=== PATIENT | female | born 1950 | race Caucasian/White ===

== ENCOUNTER 2021-08-13 14:58 | Emergency (ER) | payer MEDICARE, OTHER, SELFPAY ==
[2021-08-13 15:33] VITALS: BP 114/52; PULSE 78; RESP 16; TEMP 36.2; O2SAT 97
--- NOTE | 2021-08-13 15:44 | DI.CT_ITS ---
Exam(s) CT HEAD FACIAL WO EXAM: CT HEAD FACIAL WO CLINICAL HISTORY: trauma headache. TECHNIQUE: Imaging Protocol: Axial computed tomography images with coronal and sagittal reformatted images were created and reviewed COMPARISON: No exams were available for comparison FINDINGS: CT Head: Ventricles and Extra axial spaces: Normal in size and morphology for the patient's age. Hemorrhage: None. Cerebral parenchyma: Normal. Midline shift: None. Brainstem/Cerebellum: Normal. Calvarium: Normal. Visualized Paranasal sinuses/Mastoids: Clear. Soft Tissues: Unremarkable. CT Face: Facial Bones: No definite fracture is noted in facial bones. Sinuses and Mastoids: Unremarkable. Globes, extraocular muscles, optic nerves and retrobulbar fat: Normal. Upper aerodigestive tract: Normal. Mandible and bilateral temporomandibular joints: Normal. Soft tissues: Normal. IMPRESSION: 1. No acute intracranial process. 2. No acute facial fracture. RADIATION DOSE DELIVERED: 1,081.44mGy.cm Total DLP DATA REPOSITORY: All CT scans at this facility are submitted to the National Radiology Data Registry (NRDR) Dose Index Registry (DIR) with the [employer] ([employer]). RADIATION OPTIMIZATION: All CT scans at this facility use at least one of these dose optimization te chniques: automated exposure control; mA and/or kV adjustment per patient size (includes targeted exa ms where dose is matched to clinical indication); or iterative reconstruction.
[2021-08-13] MEDS: Acetaminophen 325 MG TAB 650 MG PO (15:53)
--- NOTE | 2021-08-13 17:08 | DI.VRAD_ITS ---
PROCEDURE INFORMATION: Exam: CT Head Without Contrast Exam date and time: 08/13/2021 4:19 PM Age: 71 years old Clinical indication: Other: Trauma, headache TECHNIQUE: Imaging protocol: Computed tomography of the head without contrast. COMPARISON: No relevant prior studies available. FINDINGS: Brain: No acute intracranial hemorrhage.. There is mild diffuse heterogeneity of the white matter attenuation, consistent with chronic white matter ischemic changes. Mild cerebral atrophy Cerebral ventricles: No ventriculomegaly. Paranasal sinuses: Visualized sinuses are unremarkable. No fluid levels. Mastoid air cells: Visualized mastoid air cells are well aerated. Bones/joints: Unremarkable. No acute fracture. Soft tissues: Unremarkable. IMPRESSION: No acute intracranial hemorrhage.. PROCEDURE INFORMATION: Exam: CT Maxillofacial Without Contrast Exam date and time: 08/13/2021 4:19 PM Age: 71 years old Clinical indication: Other: Trauma, headache TECHNIQUE: Imaging protocol: Computed tomography images of the face without contrast. COMPARISON: No relevant prior studies available. FINDINGS: Orbital cavities: Orbits are normal. Globes are unremarkable. Bones/joints: No acute fracture.. Paranasal sinuses: Normal. No air-fluid levels. Soft tissues: Unremarkable. Dental: Periapical lucencies in the right maxilla may represent periapical abscess. IMPRESSION: 1. Periapical lucencies in the right maxilla may represent periapical abscess. 2. No acute fracture.. Dictated and Authenticated by: Forrest Montero MD. Ordering:MARGARET Turcios MD
--- NOTE | 2021-08-13 17:23 | ED.GENADUL_ITS ---
Discharge Plan Disposition Patient Disposition: HOME Condition: Improving Discharge Details Clinical Impression: Mild concussion Primary Care Provider: Unknown,Unknown ED Provider: Tam Thomas Home Meds and New Rx's Prescriptions: New ondansetron 4 mg tablet,disintegrating 4 mg PO Q6H PRN (Reason: nausea and vomiting) Qty: 10 0RF No Action estrone 5 mg/mL Suspension IM Discharge Instructions Instructions: Concussion (ED) Additional Instructions: Please stay well-hydrated and get plenty of rest over the next 3 to 4 days and then slowly advance activity as tolerated. Return immediately to the closest emergency department if you develop any severe neurological symptoms, change in mental status, or further concerns. To treat your symptoms you may continue to use [id number] acetaminophen/Tylenol and the prescribed antinausea medication as needed. If you are not improving in the next 1 to 2 weeks please follow-up with your primary care provider for reassessment. Referrals: Primary Care Provider [Outside] - 2 weeks (If not improving) Discharge Data Discharge Date/Time-TO BE ENTERED AT DEPARTURE: 08/13/21 18:17 Medical Decision Making Patient presenting to the emergency department for chief complaint of head injury. Patient states earlier today she fell striking her right cheekbone against a chair. She had localized discomfort which was minor and so waited on coming to the emergency department. Now she is complaining of a generalized headache, mild nausea, and bilateral eye discomfort. Patient denies any loss of consciousness, neck pain, or other injuries. Physical exam is unremarkable for any focal neurological findings, patient does have mild tenderness to right maxilla otherwise unremarkable exam. Given patient's age and worsening symptoms we will plan on performing radiological imaging of head and facial bones. Pending results patient will be given Tylenol and was offered antiemetic but declined at this time. Review of radiological imaging shows no worrisome findings. There were periapical lucencies noted but patient denies any dental pain or discomfort. Given no worrisome findings on CT imaging I feel that patient probably suffering from a mild concussion. Discussed standard concussion treatment along precautions and return. After discussion of diagnosis and plan of care patient has no further needs, questions, or concerns and states clear understanding to return to the emergency department for any worsening symptoms. Imaging Data Radiologic Study: Imaging: CT Scan Radiologist's impression: IMPRESSION: No acute intracranial hemorrhage.. IMPRESSION: 1. Periapical lucencies in the right maxilla may represent periapical abscess. 2. No acute fracture.. HPI General Mode of arrival: ambulatory . Date/Time Provider Initiated Documentation: 08/13/21 15:35 . Limitations to Documentation: no limitations . Information obtained by: patient and RN notes reviewed . History of Present Illness 71 year old F presents to the emergency department with the chief complaint of Head injury-right orbit, described as moderate, with intensity rated at 7. Quality is described as aching, and is localized to the head and face. Patient reports no radiation. Patient started experiencing this hour(s) (3) and it has been constant. No relieving factors improve symptom(s), No exacerbating factors reported . Patient notes no other symptoms.. Patient did receive the following treatments prior to arrival, none Related Data Home Medications Medication Instructions Recorded Confirmed estrone 5 mg/mL intramuscular mg IM 08/13/21 suspension ondansetron 4 mg disintegrating 4 mg PO Q6H PRN nausea and 08/13/21 tablet vomiting #10 tabs Previous Rx's Medication Instructions Recorded ondansetron 4 mg disintegrating 4 mg PO Q6H PRN nausea and 08/13/21 tablet vomiting #10 tabs Allergies Allergy/AdvReac Type Severity Reaction Status Date / Time penicillin V Allergy Unverified 08/13/21 15:40 Sulfa (Sulfonamide Allergy Unverified 08/13/21 15:39 Antibiotics) General Stated Complaint: HeadInjury CHERISE: 2 Review of Systems Narrative: 8 systems reviewed and are unremarkable except for noted in HPI and below Constitutional Constitutional: Denies frequent falls, Reports headache(s) and Denies weakness ENT Ears, Nose, Mouth, and Throat: Denies vertigo, Reports dizziness, Reports headache(s) and Denies disequilibrium Cardiovascular Cardiovascular: Denies syncope Gastrointestinal Gastrointestinal: Denies abdominal pain, Reports nausea and Denies vomiting Neurologic Neurologic: Reports as per HPI, Denies confusion, Denies vertigo, Reports dizziness, Denies syncope, Denies frequent falls, Reports headache(s), Denies sensory deficit, Denies disequilibrium and Denies weakness Psychiatric Psychiatric: Denies confusion PFSH All Active Problems (Updated 08/13/21 @ 17:37 by Tam Thomas NP) Mild concussion (Acute) Social History Smoking/Tobacco Use Status: Never Smoking risk assessment performed?: Yes Alcohol Intake: never Drug use: Never Substance use type: does not use Do you feel safe at home: Yes Exam Const General: cooperative, healthy appearing, no acute distress and well groomed Orientation: alert, awake and oriented x3 HENMT Head: normal to inspection, no abrasions, no Burns's sign and no raccoon eyes Ears: hearing grossly normal bilaterally and TM's normal bilaterally General nose exam: external nose normal and nares normal Face and sinus: tenderness on the right periorbital and maxilla Mouth: oral mucosae normal and moist mucous membranes Throat: posterior oropharynx normal Eyes Visual Dobbins: normal visual dobbins by confrontation Alignment and Position: alignment normal Periorbital: periorbital findings normal Eyelids: eyelids normal Sclera: sclerae normal Cornea: corneas normal Pupils: PERRL EOM: EOM intact bilaterally Neck Neck: normal visual inspection, full ROM, no lymphadenopathy and no meningeal signs Resp Effort & Inspection: normal respiratory effort and able to speak in complete sentences Auscultation: clear to auscultation bilaterally Cardio Rate: regular rate Rhythm: regular rhythm Heart Sounds: S1 normal and S2 normal Neuro General: patient alert, patient awake, patient oriented x3, gait normal, tone normal, moves all extremities, CN's II-XI intact bilaterally and not confused Cognition: normal cognition Speech: speech normal Motor: muscle tone normal throughout, no movement abnormalities noted and no fasciculations Sensory Exam: no sensory deficits noted Coordination: Does not sway with eyes open Course Vital Signs Vital signs: Vital Signs Temperature 36.2 C L 08/13/21 15:33 Pulse 78 08/13/21 15:33 Respiratory Rate 16 08/13/21 15:33 Blood Pressure 114/52 L 08/13/21 15:33 Pulse Oximetry 97 08/13/21 15:33 Temperature 36.2 C L 08/13/21 15:33 Temperature Source Temporal Artery Scan 08/13/21 15:33 Pulse 78 08/13/21 15:33 Respiratory Rate 16 08/13/21 15:33 Respiratory Effort Non-Labored 08/13/21 16:23 Respiratory Depth Normal 08/13/21 16:23 Respiratory Pattern Normal 08/13/21 16:23 Blood Pressure 114/52 L 08/13/21 15:33 Blood Pressure Position Sitting 08/13/21 15:33 Pulse Oximetry 97 05/21/22 15:33 Oxygen Delivery Method Room Air 08/13/21 15:33 Oxygen Flow Rate 0 08/13/21 15:33 Pain Level 7 08/13/21 15:53
[2021-08-13 17:46] VITALS: BP 121/71; PULSE 71; RESP 18; O2SAT 99
== END 2021-08-13 18:17 | disposition home or self-care (01) ==
PROVIDERS: Emergency Provider Nurse Practitioner Family
DX: S06.0X0A Concussion without loss of consciousness, initial encounter (principal); W18.39XA Other fall on same level, initial encounter
CPT/HCPCS: 99284; 70450; 70486; 99283